=== PATIENT | female | born 1960 | race Hispanic/Latino ===

== ENCOUNTER 2016-11-27 09:35 | Outpatient (CLI) | payer MEDICARE ==
--- NOTE | 2016-11-27 10:59 | Mammography Report ---
Baseline bilateral digital screening mammogram with CAD. Findings: The study is technically suboptimal due to poor positioning related to the patient's clinical condition. The patient is in a wheelchair. In the upper right breast on the MLO projection, there is an ovoid shaped parenchymal asymmetry which is not identified on the CC projection, probably due to positioning. In the left breast in the subareolar region, there is a focal parenteral asymmetry which is ill-defined due to the adjacent parenchyma. A coarse dense calcification on the left appears benign. Impression: Bilateral parenchymal asymmetries. BI-RADS code: 0. Recommendation: Spot compression views and 90 degrees view on the left. Exaggerated lateral CC projection and spot compression image on the right with ultrasound bilaterally if needed.
== END 2016-11-27 09:36 | disposition home or self-care (01) ==
LOC: MAMMO 09:35
PROVIDERS: ATTEND Internal Medicine
DX: Z12.31 Encounter for screening mammogram for malignant neoplasm of breast (principal); I10 Essential (primary) hypertension; F17.200 Nicotine dependence, unspecified, uncomplicated
CPT/HCPCS: 77067; G0202

== ENCOUNTER 2016-12-20 08:30 | Outpatient (CLI) | payer MEDICARE ==
--- NOTE | 2016-12-26 08:32 | Ultrasound Report ---
BILATERAL DIGITAL DIAGNOSTIC MAMMOGRAM and RIGHT BREAST ULTRASOUND: 12/20/16 08:30:00 CLINICAL: Reculture bilateral asymmetries. COMPARISON:11/27/16 screening FINDINGS: Right exaggerated CC and bilateral spot compression views were performed. Satisfactory effacement of left asymmetry but a persistent right upper outer asymmetry of both the views. Ultrasound of the right breast demonstrated a lymph node with benign morphology and central fat at 10 o'clock 11 cm from the nipple. It measures 1.4 x 0.5 x 0.9 cm and correlates with the mammographic density. A probable benign cyst at 12 o'clock 5 cm from the nipple measures 5 x 6 x 3 mm. IMPRESSION: A probably benign 6 mm right breast cyst at 12 o'clock 5 cm from the nipple and a benign right intraparenchymal lymph node at 10 o'clock 11 cm from the nipple. Recommend six month followup right mammogram and right breast ultrasound.Negative left breast. Recommend routine screening of the left breast. BI-RADS CATEGORY: 3 - - Probably Benign RECOMMENDATION: Six month followup right breast. ACR BI-RADS MAMMOGRAPHIC CODES: 0 = Needs additional imaging evaluation; 1 = Negative; 2 = Benign; 3 = Probably benign; 4 = Suspicious; 5 = Malignant; 6 = Known biopsy-proven malignancy COMMENT: 1. Dense breast tissue, i.e., adenosis, fibrocystic changes, etc., may obscure an underlying neoplasm. 2. Approximately 10% of cancers are not detected with mammography. 3. A negative mammography report should not delay biopsy if a clinically suspicious mass is present. COMMENT: Patient follow-up letters are generated via our [employer] application.
== END 2016-12-20 08:31 | disposition home or self-care (01) ==
LOC: MAMMO 08:30
PROVIDERS: ATTEND Internal Medicine
DX: N60.01 Solitary cyst of right breast (principal); I10 Essential (primary) hypertension; F17.200 Nicotine dependence, unspecified, uncomplicated
CPT/HCPCS: 76642; G0206

== ENCOUNTER 2017-07-04 14:51 | Emergency (ER) | payer MEDICARE ==
[2017-07-04] MEDS ORDERED: ASPIRIN PO ONE (16:28)
[2017-07-04 16:54] LABS: Basophils # (Auto) 0.1 K/mm3 (0.0-0.1); Basophils % (Auto) 1.2 % (0.0-1.8); Eosinophils # (Auto) 0.9 K/mm3 (0.0-0.4); Eosinophils % (Auto) 12.2 % (0.0-4.3); Hematocrit 36.1 % (30.3-42.9); Hemoglobin 11.4 gm/dl (10.1-14.3); Lymphocytes # (Auto) 2.2 K/mm3 (1.2-5.4); Lymphocytes % (Auto) 30.6 % (13.4-35.0); Mean Corpuscular HGB Conc 32 % (30-34); Mean Corpuscular Hemoglobin 27 pg (28-32); Mean Corpuscular Volume 84 fl (79-97); Monocytes # (Auto) 0.5 K/mm3 (0.0-0.8); Monocytes % (Auto) 7.4 % (0.0-7.3); Platelet Count 325 K/mm3 (140-440); Red Blood Count 4.28 M/mm3 (3.65-5.03); Red Cell Distribution Width 16.8 % (13.2-15.2)
[2017-07-04 17:06] LABS: BUN/Creatinine Ratio 21; Blood Urea Nitrogen 15 mg/dL (7-17); Hemolysis Index 3
[2017-07-04] MEDS ORDERED: ATROVENT IH ONE (17:06)
[2017-07-04] MEDS ORDERED: PROVENTIL IH ONE (17:06)
--- NOTE | 2017-07-04 17:06 | Emergency Department Report ---
ED Chest Pain HPI - General Chief Complaint: Chest Pain Stated Complaint: CHEST PAIN Time Seen by Provider: 07/04/17 16:37 Source: EMS Mode of arrival: Wheelchair Limitations: Physical Limitation - History of Present Illness Initial Comments: Patient is a 57-year-old female who is presenting from [facility] for chest pain. Patient states that she has had chest pain shortness of breath for the past 2 weeks. Patient states the pain is worse with inspiration. Patient also is complaining of cough is nonproductive. Patient denies any nausea vomiting fevers chills, abdominal pain diarrhea at this time. 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 Severity scale (0 -10): 5 - Related Data Home Medications Medication Instructions Recorded Confirmed Last Taken Aricept 10 mg PO DAILY 12/27/14 12/27/14 12/26/14 Celexa 20 mg PO DAILY 12/27/14 12/27/14 12/26/14 Diovan 40 mg PO DAILY 12/27/14 12/27/14 12/26/14 Ferrous Sulfate 325 mg PO DAILY 12/27/14 12/27/14 12/26/14 LORazepam 0.5 mg PO QAM 12/27/14 12/27/14 12/26/14 Namenda 10 mg PO BID 12/27/14 12/27/14 12/26/14 Allergies Allergy/AdvReac Type Severity Reaction Status Date / Time Penicillins Allergy Rash Verified 12/27/14 01:35 Heart Score - HEART Score History: Slightly suspicious EKG: Normal Age: 45-65 Risk factors: No known risk factors Troponin: < normal limit HEART Score: 1 ED Review of Systems ROS: Stated complaint: CHEST PAIN Other details as noted in HPI Comment: All other systems reviewed and negative ED Past Medical Hx - Past Medical History Hx Hypertension: Yes Hx Psychiatric Treatment: Yes Additional medical history: brain injury, acid reflux, dysphagia, hemiplga R side, dementia, herpes zoster - Surgical History Past Surgical History?: No - Social History Smoking Status: Current Every Day Smoker Substance Use Type: None - Medications Home Medications: Home Medications Medication Instructions Recorded Confirmed Last Taken Type Aricept 10 mg PO DAILY 12/27/14 12/27/14 12/26/14 History Celexa 20 mg PO DAILY 09/29/15 09/29/15 09/28/15 History Diovan 40 mg PO DAILY 12/27/14 12/27/14 12/26/14 History Ferrous Sulfate 325 mg PO DAILY 12/27/14 12/27/14 12/26/14 History LORazepam 0.5 mg PO QAM 12/27/14 12/27/14 12/26/14 History Namenda 10 mg PO BID 12/27/14 12/27/14 12/26/14 History ED Physical Exam - General Limitations: Physical Limitation General appearance: alert, in no apparent distress - Head Head exam: Present: atraumatic, normocephalic - Eye Eye exam: Present: normal appearance, PERRL, EOMI Pupils: Present: normal accommodation - ENT ENT exam: Present: mucous membranes moist - Neck Neck exam: Present: normal inspection - Respiratory Respiratory exam: Present: normal lung sounds bilaterally, wheezes, rhonchi. Absent: respiratory distress, rales - Cardiovascular Cardiovascular Exam: Present: regular rate, normal rhythm. Absent: systolic murmur, diastolic murmur, rubs, gallop - GI/Abdominal GI/Abdominal exam: Present: soft, normal bowel sounds. Absent: distended, tenderness, guarding, rebound - Extremities Exam Extremities exam: Present: normal inspection - Back Exam Back exam: Present: normal inspection - Neurological Exam Neurological exam: Present: alert, oriented X3 - Psychiatric Psychiatric exam: Present: normal affect, normal mood - Skin Skin exam: Present: warm, dry, intact, normal color. Absent: rash ED Course Vital Signs 07/04/17 07/04/17 07/04/17 16:04 16:05 16:10 Temperature Pulse Rate 81 84 82 Pulse Rate [ Bilateral] Respiratory 14 24 17 Rate Respiratory Rate [Bilateral ] Blood Pressure 129/80 129/80 O2 Sat by Pulse 98 97 98 Oximetry 07/04/17 07/04/17 07/04/17 16:14 16:15 16:20 Temperature 98.4 F Pulse Rate 85 78 78 Pulse Rate [ Bilateral] Respiratory 24 18 17 Rate Respiratory Rate [Bilateral ] Blood Pressure 129/80 143/74 143/74 O2 Sat by Pulse 97 98 97 Oximetry 07/04/17 07/04/17 07/04/17 16:26 16:34 17:29 Temperature 98.4 F Pulse Rate 77 Pulse Rate [ 83 Bilateral] Respiratory 17 24 Rate Respiratory 17 Rate [Bilateral ] Blood Pressure 143/74 O2 Sat by Pulse 96 97 Oximetry ED Medical Decision Making - Lab Data Result diagrams: 07/04/17 16:34 07/04/17 16:34 Lab Results 07/04/17 07/04/17 07/04/17 Range/Units 16:34 16:34 16:43 WBC 7.2 (4.5-11.0) K/mm3 RBC 4.28 (3.65-5.03) M/mm3 Hgb 11.4 (10.1-14.3) gm/dl Hct 36.1 (30.3-42.9) % MCV 84 (79-97) fl MCH 27 L (28-32) pg MCHC 32 (30-34) % RDW 16.8 H (13.2-15.2) % Plt Count 325 (140-440) K/mm3 Lymph % (Auto) 30.6 (13.4-35.0) % Holt % (Auto) 7.4 H (0.0-7.3) % Eos % (Auto) 12.2 H (0.0-4.3) % Baso % (Auto) 1.2 (0.0-1.8) % Lymph # 2.2 (1.2-5.4) K/mm3 Holt # 0.5 (0.0-0.8) K/mm3 Eos # 0.9 H (0.0-0.4) K/mm3 Baso # 0.1 (0.0-0.1) K/mm3 Seg Neutrophils % 48.6 (40.0-70.0) % Seg Neutrophils # 3.5 (1.8-7.7) K/mm3 D-Dimer 752.96 H (0-234) ng/mlDDU Sodium 142 (137-145) mmol/L Potassium 3.9 (3.6-5.0) mmol/L Chloride 102.2 (98-107) mmol/L Carbon Dioxide 24 (22-30) mmol/L Anion Gap 20 mmol/L BUN 15 (7-17) mg/dL Creatinine 0.7 (0.7-1.2) mg/dL Estimated GFR > 60 ml/min BUN/Creatinine Ratio 21 % Glucose 107 H (65-100) mg/dL Calcium 9.0 (8.4-10.2) mg/dL Troponin T < 0.010 (0.00-0.029) ng/mL NT-Pro-B Natriuret Pep (0-900) pg/mL 07/04/17 Range/Units 16:43 WBC (4.5-11.0) K/mm3 RBC (3.65-5.03) M/mm3 Hgb (10.1-14.3) gm/dl Hct (30.3-42.9) % MCV (79-97) fl MCH (28-32) pg MCHC (30-34) % RDW (13.2-15.2) % Plt Count (140-440) K/mm3 Lymph % (Auto) (13.4-35.0) % Holt % (Auto) (0.0-7.3) % Eos % (Auto) (0.0-4.3) % Baso % (Auto) (0.0-1.8) % Lymph # (1.2-5.4) K/mm3 Holt # (0.0-0.8) K/mm3 Eos # (0.0-0.4) K/mm3 Baso # (0.0-0.1) K/mm3 Seg Neutrophils % (40.0-70.0) % Seg Neutrophils # (1.8-7.7) K/mm3 D-Dimer (0-234) ng/mlDDU Sodium (137-145) mmol/L Potassium (3.6-5.0) mmol/L Chloride (98-107) mmol/L Carbon Dioxide (22-30) mmol/L Anion Gap mmol/L BUN (7-17) mg/dL Creatinine (0.7-1.2) mg/dL Estimated GFR ml/min BUN/Creatinine Ratio % Glucose (65-100) mg/dL Calcium (8.4-10.2) mg/dL Troponin T (0.00-0.029) ng/mL NT-Pro-B Natriuret Pep 193.7 (0-900) pg/mL - Medical Decision Making Patient has a two-week history of pleuritic chest pain. Patient has a chest x- ray that appeared within normal limits. Her d-dimer was elevated and a CT and 0 of the chest has been ordered. Patient is adamant that she does not want this test done. And actually is requesting to leave AGAINST MEDICAL ADVICE. [facility] nursing staff as discussed alternative options of the CT scan patient states that she also just doesn't want to be here anymore. Again patient is alert and oriented and understands that she could have a life-threatening condition other causes . Critical care attestation.: If time is entered above; I have spent that time in minutes in the direct care of this critically ill patient, excluding procedure time. ED Disposition Clinical Impression: Chest pain Qualifiers: Chest pain type: chest pain on breathing Qualified Code(s): R07.1 - Chest pain on breathing; R07.81 - Pleurodynia Disposition: DC-07 LEFT AGAINST MED ADVICE Is pt being admited?: No Does the pt Need Aspirin: No Condition: Stable Instructions: Chest Pain (ED) Referrals: PRIMARY CARE, [Primary Care Provider] - 3-5 Days
--- NOTE | 2017-07-04 18:03 | XRay Report ---
FINAL REPORT EXAM: XR CHEST 1V AP HISTORY: cp sob cough TECHNIQUE: Frontal portable examination of the chest PRIORS: None FINDINGS: Healed posterior left rib fractures. Limited examination due to prominent soft tissue attenuation. Oblique patient position limits the examination. There is no visible pulmonary consolidation, pleural effusion, or pneumothorax. Cardiac silhouette size is normal without vascular congestion. No visible acute displaced fracture in the regional skeleton. IMPRESSION: No acute cardiopulmonary disease in the visualized chest
[2017-07-04 19:57] VITALS: BP 144/63
== END 2017-07-04 19:57 | disposition left against medical advice (07) ==
LOC: ED 14:51
DX: R07.89 Other chest pain (principal); I10 Essential (primary) hypertension; F17.200 Nicotine dependence, unspecified, uncomplicated; Z88.0 Allergy status to penicillin
CPT/HCPCS: 36415; 71045; 80048; 83880; 84484; 85025; 85379; 99284